=== PATIENT | female | born 1995 | race Caucasian/White ===

== ENCOUNTER 2016-12-19 21:47 | Emergency (ER) | payer OTHER ==
[2016-12-19 21:52] VITALS: BP 111/72; BMI 26.5
[2016-12-19 22:35] LABS: BILIRUBIN,URINE NEGATIVE (NEGATIVE); BLOOD/HEMOGLOBIN,URINE 1+ (NEGATIVE); GLUCOSE, URINE NEGATIVE (NEGATIVE); KETONES,URINE 3+ (NEGATIVE); LEUKOCYTE ESTERASE ,URINE 1+ (NEGATIVE); NITRITES,URINE NEGATIVE (NEGATIVE); PROTEIN,URINE 1+ (NEGATIVE); UROBILINOGEN,URINE NORMAL (NORMAL)
[2016-12-19 22:44] LABS: APPEARANCE,URINE CLEAR (CLEAR); COLOR,URINE YELLOW (YELLOW)
[2016-12-19 22:45] LABS: BACTERIA,URINE 1+ /HPF (NEGATIVE); MUCUS,URINE MANY /HPF (NEGATIVE); RBC,URINE 0-2 /HPF (NEGATIVE); SQUAMOUS EPITHELIAL CELL,UR FEW /HPF (NEGATIVE)
[2016-12-19] MEDS ORDERED: NS 1000 ML 1,000 ML IV ONE (22:50)
[2016-12-19] MEDS ORDERED: NS 1000 ML 1,000 ML ONE (22:52)
--- NOTE | 2016-12-19 22:55 | DR.NAUSEAF ---
HPI - Time Seen Time seen: 22:45 - Primary Care Physician Primary Care Physician: KATIE - Complaints Chief Complaint:: N/V 3 TIMES TODAY. NAUSEA ALL THE TIME BUT VOMITING TODAY. OB 11WKS C [id number] ARACELI [id number] A0 Self Treatment fo Chief Complaint: PHENERGAN. REGLAN - Source History Provided: Patient - Mode of Arrival Mode of Arrival: Ambulatory - Timing Onset of Chief Complaint: 12/19/16 PMH - PMH Past Medical History: No Past Surgical History: No - Family History History of Family Medical Conditions: No Family Medical History: Hypertension - Social History Does patient currently use any type of tobacco product: No Have you used tobacco products in the last 12 months: No Type of Tobacco Use: None Does any household member use tobacco: No Alcohol Use: None Do you use any recreational Drugs:: No Lives With: Spouse Lives Where: Home - infectious screening Have you traveled outside the country in the last 6 months?: No Isolation: Standard ROS - Review of Systems Constitutional: No Symptoms Reported Eyes: No Symptoms Reported ENTM: No Symptoms Reported Respiratoy: No Symptoms Reported Cardiovascular: No Symptoms Reported Gastrointestinal/Abdominal: No Symptoms Reported Genitourinary: No Symptoms Reported Neurological: No Symptoms Reported Musculoskeletal: No Symptoms Reported Integumentary: No Symptoms Reported Hematologic/Lymphatic: No Symptoms Reported Endocrine: No Symptoms Reported Psychiatric: No Symptoms Reported All Other Systems: Reviewed and Negative PE - Vital Signs Vitals: Temperature 98.6 F Pulse Rate 100 Respiratory Rate 16 Blood Pressure [Right Arm] 115/69 Blood Pressure [Left Arm] 122/59 Blood Pressure 111/72 O2 Sat by Pulse Oximetry 99 - General Limitations: No Limitations General Appearance: Alert, In No Apparent Distress - Head Head Exam: Normal Inspection, Atraumatic - Eyes Eye exam: Normal Appearance, PERRL, EOMI - ENT ENT Exam: Normal Exam - Neck Neck Exam: Normal Inspection, Full ROM, Trachea Midline - Chest Chest Inspection: Normal Inspection, Symmetric Chest Wall Rise - Respiratory Respiratory Exam: Normal Lung Sounds Bilat Respiratory Exam: Bilateral Clear to Auscultation - Cardiovascular Cardiovascular Exam: Regular Rate, Normal Rhythm - Abdominal Exam Abdominal Exam: Normal Inspection, Normal Bowel Sounds Abdominal Tenderness: negative: RUQ, RLQ, LUQ, LLQ, Epigastrium, Suprapubic, Diffuse, Mild, Moderate, Severe, Other - Rectal Rectal Exam: Deferred - External Exam: Female: Deferred : Speculum Exam (Female): Deferred : Bimanual Exam (female): Deferred - Extremities Extremities Exam: Normal Inspection, Full ROM - Back Back Exam: Normal Inspection - Neurologic Neurological Exam: Alert, Oriented X3, CN II-XII Intact - Psychiatric Psychiatric Exam: Normal Affect - Skin Skin Exam: Warm, Dry, Intact Course - Reevaluation 1st: Improved ROR - Labs Reviewed Laboratory Results Reviewed?: Yes (Urine: SG 1.130; 3+kentones) Laboratory: Specimen Type Clean catch urine 12/19/16 22:12 Urine Color Yellow (YELLOW) 12/19/16 22:12 Urine Appearance Clear (CLEAR) 12/19/16 22:12 Urine pH 5.0 (5.0 - 8.0) 12/19/16 22:12 Ur Specific [place] 1.030 (1.000-1.030) 12/19/16 22:12 Urine Protein 1+ (NEGATIVE) 12/19/16 22:12 Urine Glucose (UA) Negative (NEGATIVE) 12/19/16 22:12 Urine Ketones 3+ (NEGATIVE) 12/19/16 22:12 Urine Occult Blood 1+ (NEGATIVE) 12/19/16 22:12 Urine Nitrite Negative (NEGATIVE) 12/19/16 22:12 Urine Bilirubin Negative (NEGATIVE) 12/19/16 22:12 Urine Urobilinogen Normal (NORMAL) 12/19/16 22:12 Ur Leukocyte Esterase 1+ (NEGATIVE) 12/19/16 22:12 Urine RBC 0-2 /HPF (NEGATIVE) 12/19/16 22:12 Urine WBC 2-4 /HPF (NEGATIVE) 12/19/16 22:12 Ur Squamous Epith Cells Few /HPF (NEGATIVE) 12/19/16 22:12 Urine Bacteria 1+ /HPF (NEGATIVE) 12/19/16 22:12 Urine Mucus Many /HPF (NEGATIVE) 12/19/16 22:12 Ur Culture Indicated? No/not indicated 12/19/16 22:12 - Diagnosis Discharge Problem: Dehydration Qualifiers: Weeks of gestation: 11 weeks Qualified Code(s): Z3A.11 - 11 weeks gestation of - Discharge Plan Condition: Stable - Follow ups/Referrals Follow ups/Referrals: TIFFANIE WILSON [Primary Care Provider] - 3 days - Instructions
== END 2016-12-20 00:35 | disposition home or self-care (01) ==
LOC: ER 21:59
DX: E86.0 Dehydration (principal); Z3A.11 11 weeks gestation of pregnancy
CPT/HCPCS: 81001; 96365; 99283; 99284; A4222

== ENCOUNTER → 2017-07-02 | Outpatient (CLI) | payer OTHER ==
[2017-07-02 10:45] LABS: BASOPHILS % (AUTO) 0.5 % (0.2-1.0); EOSINOPHILS # (AUTO) 0.1 x10^3/uL (0.0-0.2); EOSINOPHILS % (AUTO) 0.7 % (0.9-2.9); HEMOGLOBIN 13.4 g/dL (12.0-16.0); LYMPHOCYTES # (AUTO) 2.3 X10^3/uL (1.3-2.9); LYMPHOCYTES % (AUTO) 25.8 % (21.0-51.0); MEAN CORPUSCULAR HEMOGLOBIN 29.2 pg (27.0-34.0); MEAN CORPUSCULAR HGB CONC 34.3 g/dL (33.0-35.0); MEAN CORPUSCULAR VOLUME 85.1 fL (80.0-100.0); MEAN PLATELET VOLUME 10.2 fL (7.4-11.0); MONOCYTES # (AUTO) 0.5 x10^3/uL (0.3-0.8); MONOCYTES % (AUTO) 5.5 % (0.0-13.0); NEUTROPHILS % (AUTO) 67.5 % (42.0-75.0); PLATELET COUNT 141 X10^3/uL (150.0-450.0); RED BLOOD COUNT 4.58 X10^6/uL (3.5-5.4); RED CELL DISTRIBUTION WIDTH 17.6 % (11.6-16.5); WHITE BLOOD COUNT 8.8 X10^3/uL (3.6-10.0)
[2017-07-02 10:47] LABS: BLOOD UREA NITROGEN 7 mg/dL (7-18); CALCIUM 8.8 mg/dL (8.5-10.1); CARBON DIOXIDE 27.3 mmol/L (21-32); CHLORIDE 103 mmol/L (98-107); CREATININE 0.63 mg/dL (0.55-1.02); SODIUM 138 mmol/L (136-145); eGFR BLACK RACES > 60 (>60); eGFR NON BLACK RACES > 60 (>60)
[2017-07-02 10:53] LABS: BILIRUBIN,URINE NEGATIVE (NEGATIVE); BLOOD/HEMOGLOBIN,URINE 1+ (NEGATIVE); GLUCOSE, URINE NEGATIVE (NEGATIVE); KETONES,URINE NEGATIVE (NEGATIVE); LEUKOCYTE ESTERASE ,URINE 2+ (NEGATIVE); NITRITES,URINE NEGATIVE (NEGATIVE); PROTEIN,URINE 1+ (NEGATIVE); UROBILINOGEN,URINE 1+ (NORMAL)
[2017-07-02 11:07] LABS: APPEARANCE,URINE SLIGHTLY HAZY (CLEAR); BACTERIA,URINE NEGATIVE /HPF (NEGATIVE); COLOR,URINE YELLOW (YELLOW); SQUAMOUS EPITHELIAL CELL,UR FEW /HPF (NEGATIVE)
[2017-07-02 11:08] LABS: MUCUS,URINE MODERATE /HPF (NEGATIVE)
== END ==
LOC: LAB 09:56
PROVIDERS: ATTEND Specialist
DX: Z01.818 Encounter for other preprocedural examination (principal); Z79.899 Other long term (current) drug therapy; Z01.812 Encounter for preprocedural laboratory examination; Z34.83 Encounter for supervision of other normal pregnancy, third trimester
CPT/HCPCS: 36415; 80048; 80307; 81001; 85025; 86592; 86850; 86900; 86901; G0434

== ENCOUNTER 2017-07-04 06:33 | Inpatient (IN) | payer OTHER ==
[2017-07-04] MEDS ORDERED: LR 1000 ML IV 1,000 ML IV ONE (06:50)
[2017-07-04] MEDS ORDERED: D5LR 1L W PITOCIN 10 UNITS/L 10 UNITS/1,000 ML BAG IV ONE (06:51)
[2017-07-04] MEDS ORDERED: PITOCIN ONE (06:51)
[2017-07-04] MEDS ORDERED: D5 1/2 NS 1000 ML 1,000 ML IV ONE (06:51)
[2017-07-04] MEDS ORDERED: D5 1/2 NS 1L W PITOCIN 20 UNITS/L 20 UNITS/1,000 ML BAG IV ONE (06:51)
[2017-07-04] MEDS ORDERED: FENTANYL INJ 100 mcg ONE (07:31)
[2017-07-04] MEDS ORDERED: NAROPIN EPIDURAL 0.2% + FENTANYL 90MCG 60 ML EPI ONE (07:31)
--- NOTE | 2017-07-04 07:52 | DR.OB ---
OB Quick Note - Assessment/Plan Assessment/Plan: L&D 07/04/17 at 7:10am S-No complaint. O-Afebrile,VSS AZZ=078 with good LTV, +accel, no decel. CTX=none CVX=3-4cm/50%/-1/VTX AROM with clear fluid. IUPC and FSE placed. A-IUP at 38 6/7 weeks for induction Oligohydramnios +GBS anemia P-Begin pitocin induction IV ABX in labor for GBS Anticipate
[2017-07-04] MEDS ORDERED: NS 100 ML IV 100 ML IV ONE (08:00)
[2017-07-04] MEDS ORDERED: AMPICILLIN VIAL 2 GM ONE (08:00)
[2017-07-04] MEDS ORDERED: PITOCIN IVP ONE (08:28)
[2017-07-04] MEDS ORDERED: PHENERGAN INJ 25 MG IV PRN ×3 (08:28→12:50)
[2017-07-04] MEDS ORDERED: AMPICILLIN VIAL 1 GM 1 GM in NS 50 ML IV + SPIKE MINIBAG* 50 ML IV SCH (08:28)
[2017-07-04] MEDS ORDERED: D5LR 1L W PITOCIN 10 UNITS/L 10 UNITS/1,000 ML BAG IV PRN (08:28)
[2017-07-04] MEDS ORDERED: REGLAN INJ 10 MG VIAL IVP PRN ×2 (08:28→12:50)
[2017-07-04] MEDS ORDERED: AMPICILLIN VIAL 2 GM 2 GM in NS 100 ML IV + SPIKE MINIBAG* 100 ML IV SCH (08:28)
[2017-07-04] MEDS ORDERED: NUBAIN INJ 200 MG VIAL MULTIDOSE IVP PRN (08:28)
[2017-07-04] MEDS ORDERED: D5 1/2 NS 1000 ML 1,000 ML IV SCH (08:28)
[2017-07-04] MEDS ORDERED: MORPHINE SULFATE INJ 2 MG INJ IVP PRN (08:28)
[2017-07-04 10:07] LABS: BILIRUBIN,URINE NEGATIVE (NEGATIVE); BLOOD/HEMOGLOBIN,URINE 3+ (NEGATIVE); GLUCOSE, URINE NEGATIVE (NEGATIVE); KETONES,URINE 1+ (NEGATIVE); LEUKOCYTE ESTERASE ,URINE NEGATIVE (NEGATIVE); NITRITES,URINE NEGATIVE (NEGATIVE); PROTEIN,URINE 1+ (NEGATIVE); UROBILINOGEN,URINE NORMAL (NORMAL)
[2017-07-04 10:18] LABS: APPEARANCE,URINE CLEAR (CLEAR); COLOR,URINE YELLOW (YELLOW)
[2017-07-04 10:19] LABS: BACTERIA,URINE NEGATIVE /HPF (NEGATIVE); MUCUS,URINE MANY /HPF (NEGATIVE); SQUAMOUS EPITHELIAL CELL,UR FEW /HPF (NEGATIVE)
[2017-07-04] MEDS ORDERED: MOTRIN TAB 800 MG PO PRN (11:59)
--- NOTE | 2017-07-04 11:59 | DR.OB ---
OB Quick Note - Assessment/Plan Assessment/Plan: Delivery Note [facility] 07/04/17 at 11:45am Patient complete and pushing. Head delivered over intact perineum. No nuchal cord. Nose and mouth bulb suctioned. Body delivered over intact perineum. Cord clamped x 2 and cut. Infant handed to attendant. Cord sent for gases. Placenta delivered spontaneously / intact / 3 vessel cord. No CVX tears. A second degree midline tear noted and repaired with 0-vicryl in usual fashion. Viable male infant, VTX/OA, wt=6'14" and 9/10, stable to NBN. Mother stable to NBN. VDY=[id number].
[2017-07-04] MEDS ORDERED: D5 1/2 NS 1000 ML 1,000 ML with PITOCIN 20 UNITS IV SCH ×2 (12:00)
[2017-07-04] MEDS ORDERED: MILK OF MAGNESIA PO PRN (12:50)
[2017-07-04] MEDS ORDERED: AMBIEN PO PRN (12:50)
[2017-07-04] MEDS ORDERED: DERMOPLAST SPRAY TOP PRN (12:50)
[2017-07-04] MEDS: D5 1/2 NS 1000 ML 1,000 ML with PITOCIN 20 UNITS IV SCH ×4 (14:30→22:42)
[2017-07-04] MEDS: ADACEL TDaP IM ONE (15:01)
[2017-07-04] MEDS: MOTRIN TAB 800 MG PO PRN (19:15)
[2017-07-04] MEDS: ZANTAC PO SCH (20:07)
[2017-07-05 04:50] LABS: HEMATOCRIT 30.6 % (36.0-47.0); HEMOGLOBIN 10.7 g/dL (12.0-16.0)
[2017-07-05] MEDS ORDERED: PRENATAL PLUS PO SCH (09:00)
[2017-07-05] MEDS ORDERED: HEMOCYTE-PLUS PO SCH (09:00)
[2017-07-05] MEDS: ZANTAC PO SCH (09:10)
[2017-07-05] MEDS: MOTRIN TAB 800 MG PO PRN (09:10)
[2017-07-05] MEDS: ADACEL TDaP IM ONE (11:08)
[2017-07-05 13:02] VITALS: BP 102/63
== END 2017-07-05 02:45 | disposition home or self-care (01) | DRG 775 ==
LOC: LD 06:33 → MED/SURG 13:29
PROVIDERS: ADMIT Specialist; ATTEND Specialist
PROC: 10E0XZZ Delivery of Products of Conception, External Approach (ICD-10-PCS; principal; 2017-07-04)
PROC: 10907ZC Drainage of Amniotic Fluid, Therapeutic from Products of Conception, Via Natural or Artificial Opening (ICD-10-PCS; 2017-07-04)
PROC: 0KQM0ZZ Repair Perineum Muscle, Open Approach (ICD-10-PCS; 2017-07-04)
PROC: 3E033VJ Introduction of Other Hormone into Peripheral Vein, Percutaneous Approach (ICD-10-PCS; 2017-07-04)
PROC: 00HU33Z Insertion of Infusion Device into Spinal Canal, Percutaneous Approach (ICD-10-PCS; 2017-07-04)
PROC: 3E0234Z Introduction of Serum, Toxoid and Vaccine into Muscle, Percutaneous Approach (ICD-10-PCS; 2017-07-05)
DX: O41.03X0 Oligohydramnios, third trimester, not applicable or unspecified (principal); Z37.0 Single live birth; O99.824 Streptococcus B carrier state complicating childbirth; B95.1 Streptococcus, group B, as the cause of diseases classified elsewhere; O99.013 Anemia complicating pregnancy, third trimester; D50.8 Other iron deficiency anemias; Z3A.38 38 weeks gestation of pregnancy; O70.1 Second degree perineal laceration during delivery; Z23 Encounter for immunization
CPT/HCPCS: 09167; 36415; 59409; 80048; 80307; 81001; 85014; 85018; 85025; 86592; 86850; 86900; 86901; A4222; S0197; G0434; J0290; J2590; J3010; J7042; J7120